=== PATIENT | female | born 1965 | race African-American/Black ===

== ENCOUNTER 2016-06-09 07:23 | Emergency (ER) | payer OTHER ==
[~2016-06-09] VITALS: Ht 154.9 cm; Wt 77.0 kg
[2016-06-09 07:23] VITALS: Ht 154.9 cm; Wt 77.0 kg
[~2016-06-09 07:23] MED LIST: ASPI81TA3 PO; CARV6.2579 PO; CHOL400T10 PO; DILT240C62 PO; DOCU-144 PO; FER325 PO; FOLI-49 PO; FURO40TA4 PO; HYDR25CA PO; INSU100C SC; LANT3I SC; LORA1TAB PO; MEDR10TA2 PO
[2016-06-09] MEDS ORDERED: DEXTROSE 50% 50 ML SYRINGE IV STA (07:25)
--- NOTE | 2016-06-09 08:02 | ERA ---
ER Documentation Chief Complaint Date/Time DATE: 06/09/16 TIME: 07:58 Chief Complaint hypoglycemia glucose 24, 1 amp of d10 given by ems HPI This is a 50-year-old female presents to the emergency department with changes in her mental status. Her son indicated he heard the patient moving around her room early this morning and therefore he went to check on her when he arrived. At the patient's room he indicated she had slurred speech and appeared confused and unsteady in her gait. Therefore he phoned 911. The patient is an insulin- dependent diabetic on Lantus and Humalog and he states it is unknown when the patient took her last dose of insulin or when she ate last. He does indicate that she has a candy jar adjacent to her bed for when she becomes hypoglycemic and noticed that the candy had been knocked onto the floor. EMS indicated the patient was hyperglycemic with an Accu-Chek of 24. They administered 1 amp of D10. Patient appeared to be more awake after she received the amp of D10. The patient has history of end-stage renal disease and receives her dialysis every Tuesday and Tuesday. She was scheduled to get dialysis today but did not go due to the changes in her mental status and therefore was brought to [facility] for further evaluation. The patient states she has not experienced any chest pain. She has had no fevers or shaking no chills. Her last full run of dialysis was 48 hours prior to arrival. ROS All systems reviewed and are negative except as per history of present illness. Medications Home Meds Active Scripts Hydroxyzine Pamoate* (Vistaril*) 25 Mg Capsule, 25 MG PO Q8, #10 CAP Prov:KIMALEXSANDERSHERWIN POLK 09/11/15 Reported Medications Lorazepam* (Lorazepam*) 1 Mg Tablet, 1 MG PO HS Y for ANXIETY, #30 TAB 03/26/15 Insulin Lispro (Humalog) 100 U/Ml Cartridge, 3 UNITS SC QAM, EA 01/13/15 Aspirin* (Aspirin* Chew) 81 Mg Tab.chew, 81 MG PO DAILY, TAB.CHEW 06/20/14 Insulin Glargine* (Lantus*) 100 Unit/Ml Soln, 15 UNIT SC QPM, EA 03/27/14 Cholecalciferol* (Vitamin D*) 400 Unit Tablet, 400 UNIT PO BID, TAB 02/15/14 Furosemide* (Furosemide*) 40 Mg Tablet, 40 MG PO BID, TAB 02/15/14 Docusate Sodium* (Colace*) 100 Mg Capsule, 100 MG PO BID, CAP 02/15/14 Medroxyprogesterone Acetate* (Provera*) 10 Mg Tablet, 10 MG PO DAILY, TAB 02/15/14 Folic Acid* (Folic Acid*) 1 Mg Tablet, 1 MG PO DAILY, TAB 01/02/14 Ferrous Sulfate* (Ferrous Sulfate*) 325 Mg Tabec, 325 MG PO BID, TAB 01/02/14 Diltiazem Hcl* (Cartia XT*) 240 Mg Cap.sr.24h, 240 MG PO DAILY, CAP 01/02/14 Carvedilol* (Carvedilol*) 6.25 Mg Tablet, 6.25 MG PO BID, TAB 01/02/14 Allergies Allergies: Coded Allergies: hydromorphone (Verified Allergy, Mild, GI UPSET, 06/09/16) morphine (Verified Allergy, Mild, GI UPSET, 06/09/16) PMhx/Soc History of Surgery: Yes (LT. BKA, AV SHUNT) Anesthesia Reaction: No Hx Neurological Disorder: No Hx Respiratory Disorders: No Hx Cardiac Disorders: Yes (HEART ATTACK IN JAN 2015) Hx Psychiatric Problems: Yes (ANXIETY) Hx Miscellaneous Medical Probl: Yes (HD) Hx Alcohol Use: No Hx Substance Use: No Hx Tobacco Use: No Smoking Status: Never smoker Physical Exam Vitals Vital Signs Date Time Temp Pulse Resp B/P Pulse Ox O2 Delivery O2 Flow Rate FiO2 06/09/16 09:55 130 22 127/103 98 Room Air 06/09/16 07:23 97.6 61 16 169/92 100 Physical Exam Constitutional:Well-developed. Well-nourished. Patient lying supine not in respiratory distress. HEENT:Normocephalic. Atraumatic.Pupils were equal round reactive to light. Moist mucous membranes.No tonsillar exudates. Neck: No nuchal rigidity. No lymphadenopathy. No posterior cervical spine tenderness or step-offs. Respiratory: Not using accessory muscles of respiration.Lungs were clear to auscultation bilaterally. No rhonchi. No rales. No wheezing. Cardiovascular: Irregular irregular rhythm.No murmurs. No rubs were appreciated.S1, S2 normal. Right distal pulse was palpable 2+ and left lower extremity prosthesis with [id number] left amputation GI: Abdomen was soft. Nontender. Non Distended. No pulsatile abdominal masses or bruits. No rebound. No guarding. Bowel sounds were present and normal. Muscle skeletal: Full range of motion of both the upper and lower extremities bilaterally.Normal muscle tone.No assymetrical calf tenderness or swelling. Skin: No petechia, no purpura. No lesions on the palms or the soles of the feet. No maculopapular rash. Thrill and bruit of the left upper extremity AV fistula NEURO: Patient was drowsy but easily arousable. No slurred speech. Patient did not ambulate. Result Diagram: 06/09/1682106/09/16826 Results 24 hrs Laboratory Tests Test 06/09/16 07:25 06/09/16 08:22 06/09/16 08:27 Bedside Glucose 274mg/dL White Blood Count 4.710^3/ul Red Blood Count 4.0910^6/ul Hemoglobin 13.6g/dl Hematocrit 42.6% Mean Corpuscular Volume 104.2fl Mean Corpuscular Hemoglobin 33.3pg Mean Corpuscular Hemoglobin Concent 31.9g/dl Red Cell Distribution Width 13.0% Platelet Count 35579^3/UL Mean Platelet Volume 12.8fl Neutrophils % 67.0% Lymphocytes % 21.2% Monocytes % 9.7% Eosinophils % 1.5% Basophils % 0.4% Nucleated Red Blood Cells % 0.0/100WBC Neutrophils # 3.210^3/ul Lymphocytes # 1.010^3/ul Monocytes # 0.510^3/ul Eosinophils # 0.110^3/ul Basophils # 0.010^3/ul Nucleated Red Blood Cells # 0.010^3/ul Prothrombin Time 11.6Sec Prothrombin Time Ratio 0.9 INR International Normalized Ratio 0.85 Activated Partial Thromboplast Time 25.9Sec Sodium Level 138mmol/L Potassium Level 3.9mmol/L Chloride Level 93mmol/L Carbon Dioxide Level 24mmol/L Anion Gap 25 Blood Urea Nitrogen 41mg/dl Creatinine 8.43mg/dl Glucose Level 196mg/dl Calcium Level 9.7mg/dl Total Bilirubin 0.2mg/dl Direct Bilirubin 0.00mg/dl Indirect Bilirubin 0.2mg/dl Aspartate Amino Transf (AST/SGOT) 40IU/L Alanine Aminotransferase (ALT/SGPT) 17IU/L Alkaline Phosphatase 163IU/L Creatine Kinase 185IU/L Creatine Kinase Index 0.8 Creatinine Kinase MB (Mass) 1.40ng/ml Troponin I 0.024ng/ml Total Protein 9.4g/dl Albumin 4.5g/dl Globulin 4.90g/dl Albumin/Globulin Ratio 0.91 Current Medications Medications (Trade) Dose Ordered Sig/Sebastián Route PRN Reason Start Time Stop Time Status Last Admin Dose Admin Dextrose (D50w Syringe) 50 ml ONCE STAT IV 06/09/16 07:25 06/09/16 07:27 DC 06/09/16 07:28 Ondansetron HCl (Zofran Inj) 4 mg ER BRIDGE PRN IV NAUSEA AND/OR VOMITING 06/09/16 10:30 06/10/16 10:29 Acetaminophen (Tylenol Tab) 650 mg ER BRIDGE PRN PO MILD PAIN/FEVER 06/09/16 10:30 06/10/16 10:29 Ondansetron HCl (Zofran Inj) 4 mg ONCE STAT IV 06/09/16 11:43 06/09/16 11:44 DC 06/09/16 11:46 Procedures/MDM The patient presented to the emergency department with an acute and persistent change in their mental status. The differential diagnosis is diverse however reversible causes such as hypoglycemia, opiate overdose, thiamine deficiency were immediately considered. The patient was placed on a lip cutter and scorer, continuous pulse oximetry and IV access was established. The patients airway was secure however hypoxic events such as anemia, shock, or severe pulmonary disease were all considered as etiologies in this patients presentation. Circulation assessed with good cap refill and did [not] require fluids or pressure support. Finger stick for rapid glucose determined to low and therefore an amp of D50 was administered and repeat Accu-Chek was 274. I obtained a chest radiograph which showed no evidence of pulmonary vascular congestion. The patient is acute on chronic renal failure with a BUN of 41 and creatinine of 8.43 and potassium was normal at 3.9. The patient will require emergent hemodialysis. I spoke with Dr. Wise who kindly saw the patient in the ER and will arrange for emergent dialysis. The patient will be admitted in serious condition under the care of Dr. Hayes and will be admitted to the telemetry service due to her renal failure and to monitor for hyperkalemia. 12 Lead EKG tracing ordered and reviewed by myself showed: Irregular regular rhythm of 72 bpm and no arrhythmia. SC interval not present as the patient had no p waves present. QRS duration normal. No ST segment elevation No ST segment depression. No changes consistent with acute ischemia. Please note that at 1324 the patient stated she went to leave AGAINST MEDICAL ADVICE. The patient was a medical capacity to make her decisions. She had been waiting in the emergency room for bed and to undergo emergent hemodialysis however she stated she no longer wanted to wait and therefore left AGAINST MEDICAL ADVICE despite me explaining the risks of doing so which could lead to worsening of her condition such as . I did phone the dialysis [facility] and they stated that they could arrange for her to receive emergent dialysis today if she did go there immediately as the patient agreed to do this Departure Diagnosis: Primary Impression: Hypoglycemia Additional Impressions: Renal failure Left against medical advice Condition: Serious HAYDE LARSON Jun 09, 2016 08:02
--- NOTE | 2016-06-09 08:16 | RADRPT ---
PROCEDURE: Chest Radiograph. CLINICAL INDICATION: Altered mental status TECHNIQUE: 2 frontal views of the chest para COMPARISON: Chest radiograph 06/11/2015 FINDINGS: The cardiomediastinal silhouette is within normal limits. Diffuse increased density in the left hem ithorax appears to be related to centering artifact. Lung volumes are decreased. No infiltrate or ef fusion is seen. A right humeral intramedullary norberto remains in place. The bones are otherwise int act. IMPRESSION: 1. No evidence of acute cardiopulmonary disease. RPTAT: AA .Roger Gil MD, MD Date Time Electronically viewed and signed by .Roger Gil MD, MD on 06/09/2016 08:16 .B/
[2016-06-09 08:41] LABS: ADD SCAN DIFF NO
[2016-06-09 08:43] LABS: BASOPHILS % 0.4 % (0.0-2.0); EOSINOPHILS # 0.1 10^3/ul (0.0-0.5); EOSINOPHILS % 1.5 % (0.0-7.0); HEMATOCRIT 42.6 % (37.0-47.0); HEMOGLOBIN 13.6 g/dl (12.0-16.0); LYMPHOCYTES % 21.2 % (15.0-51.0); MEAN CORPUSCULAR HEMOGLOBIN 33.3 pg (29.0-33.0); MEAN CORPUSCULAR HGB CONC 31.9 g/dl (32.0-37.0); MEAN CORPUSCULAR VOLUME 104.2 fl (82.0-101.0); MEAN PLATELET VOLUME 12.8 fl (7.4-10.4); MONOCYTE # 0.5 10^3/ul (0.3-0.9); MONOCYTES % 9.7 % (0.0-11.0); NEUTROPHIL # 3.2 10^3/ul (1.6-7.5); PLATELET COUNT 132 10^3/UL (140-415); RED BLOOD COUNT 4.09 10^6/ul (4.20-5.40); WHITE BLOOD COUNT 4.7 10^3/ul (4.8-10.8)
[2016-06-09 08:54] LABS: INR 0.85; PROTIME 11.6 Sec (12.2-14.2); PT RATIO 0.9
[2016-06-09 08:55] LABS: PARTIAL THROMBOPLASTIN TIME 25.9 Sec (25.0-35.0)
[2016-06-09 09:03] LABS: ALBUMIN 4.5 g/dl (3.3-4.9)
[2016-06-09 09:04] LABS: POTASSIUM 3.9 mmol/L (3.5-5.1)
[2016-06-09 09:06] LABS: ALBUMIN/GLOBULIN RATIO 0.91; BILIRUBIN,INDIRECT 0.2 mg/dl (0-1.1); BILIRUBIN,TOTAL 0.2 mg/dl (0.2-1.3); CREATININE 8.43 mg/dl (0.44-1.00); TOTAL PROTEIN 9.4 g/dl (6.1-8.1)
[2016-06-09 09:07] LABS: CALCIUM 9.7 mg/dl (8.4-10.2)
[2016-06-09 09:15] LABS: CK-MB 1.4 ng/ml (0.0-2.4)
[2016-06-09 09:19] LABS: TROPONIN-I 0.024 ng/ml (0.00-0.12)
[2016-06-09 09:55] VITALS: BP 127/103; PULSE 130; RESP 22
[2016-06-09] MEDS ORDERED: ONDANSETRON 4 MG INJ IV PRN (10:30)
[2016-06-09] MEDS ORDERED: ACETAMINOPHEN 325 MG TAB PO PRN (10:30)
[2016-06-09] MEDS ORDERED: ONDANSETRON 4 MG INJ IV STA (11:43)
== END 2016-06-09 13:42 | disposition left against medical advice (07) ==
LOC: E/R 07:23
DX: E11.649 Type 2 diabetes mellitus with hypoglycemia without coma (principal); N18.6 End stage renal disease; Z96.652 Presence of left artificial knee joint; Z79.82 Long term (current) use of aspirin; Z79.4 Long term (current) use of insulin; Z99.2 Dependence on renal dialysis
CPT/HCPCS: 71010; 80053; 82550; 82553; 82962; 84484; 85025; 85610; 85730; 93005; 96374; 96375; J2405; Z7502

== ENCOUNTER 2017-04-27 10:20 | Inpatient (IN) | END 2017-05-04 14:10 | disposition home or self-care (01) | DRG 314 ==

== ENCOUNTER 2017-05-07 06:08 | Emergency (ER) | END 2017-05-07 14:09 | disposition home or self-care (01) ==

== ENCOUNTER 2017-06-06 16:14 | Inpatient (IN) | END 2017-06-10 22:37 | disposition home or self-care (01) | DRG 264 ==

== ENCOUNTER 2017-06-24 14:09 | Inpatient (IN) | END 2017-06-25 13:41 | disposition home or self-care (01) | DRG 314 ==

== ENCOUNTER 2018-02-03 16:35 | Emergency (ER) | END 2018-02-03 18:12 | disposition home or self-care (01) ==

== ENCOUNTER 2018-04-17 13:42 | Emergency (ER) | payer BC, OTHER ==
[~2018-04-17] VITALS: Ht 175.3 cm; Wt 85.0 kg
[~2018-04-17 13:42] MED LIST changes: +ACET325T40 PO; +ASPI-903 PO; -ASPI81TA3 PO; +CALC667T2 PO; -HYDR25CA PO; -INSU100C SC; +LACT1CAP57 PO; -MEDR10TA2 PO; +NOVO3I SC
[2018-04-17 13:46] VITALS: BP 163/72; PULSE 98; RESP 20; Ht 175.3 cm; Wt 85.0 kg
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
[2018-04-17] MEDS ORDERED: HYDROCODONE/APAP (5/325) TAB PO ONE (16:30)
== END 2018-04-17 19:04 | disposition home or self-care (01) ==
LOC: FTE 13:42
DX: M54.2 Cervicalgia (principal); E11.22 Type 2 diabetes mellitus with diabetic chronic kidney disease; N18.9 Chronic kidney disease, unspecified; I12.9 Hypertensive chronic kidney disease with stage 1 through stage 4 chronic kidney disease, or unspecified chronic kidney disease; Z79.4 Long term (current) use of insulin; Z79.82 Long term (current) use of aspirin; Z99.2 Dependence on renal dialysis
CPT/HCPCS: 72040; 72125; 73030; Z7502; Z7610

== ENCOUNTER 2018-10-17 11:31 | Emergency (ER) | payer BC, OTHER ==
[~2018-10-17] VITALS: Ht 180.3 cm; Wt 160.0 kg
[~2018-10-17 11:31] MED LIST changes: +CEPH-443 PO; +SULF1TAB31 PO
[2018-10-17 11:46] VITALS: Ht 180.3 cm; Wt 160.0 kg
[2018-10-17 16:00] VITALS: BP 110/50; PULSE 60; RESP 18
== END 2018-10-17 16:06 | disposition home or self-care (01) ==
LOC: E/R 11:31
DX: L98.499 Non-pressure chronic ulcer of skin of other sites with unspecified severity (principal); I12.0 Hypertensive chronic kidney disease with stage 5 chronic kidney disease or end stage renal disease; N18.6 End stage renal disease; E11.22 Type 2 diabetes mellitus with diabetic chronic kidney disease; Z79.4 Long term (current) use of insulin; Z79.82 Long term (current) use of aspirin; Z99.2 Dependence on renal dialysis
CPT/HCPCS: 80048; 85025; 85610; 85730; 93005; 93931; Z7502